=== PATIENT | male | born 1960 | race Caucasian/White ===

== ENCOUNTER 2017-08-23 13:10 | Inpatient (IN) | payer OTHER ==
[~2017-08-23] VITALS: Ht 180.3 cm; Wt 97.1 kg
[2017-08-23 13:21] VITALS: Ht 180.3 cm; Wt 97.1 kg
[2017-08-23 14:34] LABS: BASOPHIL % 0.4 % (0-2); RED CELL DISTRIBUTION WIDTH 14.4 % (11.5-14.5)
[2017-08-23 14:40] LABS: CALCIUM 8.7 mg/dL (8.5-10.1); CARBON DIOXIDE 20.4 mmol/L (21-32); CHLORIDE SERUM 104 mmol/L (98-107); CREATININE SERUM 1.2 mg/dL (0.7-1.3); GFR1 > 60 mL/min; GLUCOSE SERUM 90 mg/dL (74-106); POTASSIUM SERUM 4.9 mmol/L (3.5-5.1); SODIUM SERUM 134 mmol/L (136-145)
[2017-08-23 14:44] LABS: ALKALINE PHOSPHATASE 105 U/L (46-116); ALT/SGPT 83 U/L (16-63); AST/SGOT 139 U/L (15-37); BILIRUBIN TOTAL 4.01 mg/dL (0.20-1.00); TOTAL PROTEIN, SERUM 7.3 g/dL (6.4-8.2)
[2017-08-23 14:45] LABS: ALBUMIN 1.9 g/dL (3.4-5.0)
[2017-08-23 14:56] LABS: T3 TOTAL 0.82 ng/mL
[2017-08-23 15:04] LABS: CHOLESTEROL 66 mg/dL (<200)
[2017-08-23 15:18] LABS: FREE T4 1.56 ng/dL (0.76-1.46); FREE THYROXINE INDEX 2.9 ug/dL (1.4-4.5); T4(THYROXINE) 8.2 ug/dL (4.7-13.3)
[2017-08-23 15:26] LABS: PLATELET COUNT 43 x10^3mcL (130-400)
[2017-08-23] MEDS ORDERED: CIPRO500 MG PO (15:37)
[2017-08-23] MEDS ORDERED: PROPRANOLOL HCL20 MG PO (15:38)
[2017-08-23] MEDS ORDERED: TUMS CH (15:38)
[2017-08-23] MEDS ORDERED: FUROSEMIDE40 MG PO (15:38)
[2017-08-23] MEDS ORDERED: ACETAMINOPHEN A1 TAB PO (15:39)
[2017-08-23] MEDS ORDERED: SPIRONOLACTONE100 MG PO (15:39)
[2017-08-23] MEDS ORDERED: LACTULOSE10 GM/152 PO (15:39)
[2017-08-23] MEDS ORDERED: GOOD SENSE OMEP20 MG PO (15:39)
[2017-08-23 16:29] VITALS: BP 144/82
[2017-08-23 21:27] VITALS: BP 134/80
[2017-08-23 21:58] LABS: microscopic required? NO
[2017-08-23 22:08] LABS: urine erythrocyte NEGATIVE (NEGATIVE)
[2017-08-23 22:48] LABS: AMPHETAMINE QUAL UR NONE DETECTED (See below)
[2017-08-24 05:38] VITALS: BP 123/79
[2017-08-24 06:23] LABS: BASOPHIL % 0.4 % (0-2)
[2017-08-24 06:35] LABS: CALCIUM 8.1 mg/dL (8.5-10.1); CARBON DIOXIDE 20.8 mmol/L (21-32); CHLORIDE SERUM 106 mmol/L (98-107); CREATININE SERUM 1.3 mg/dL (0.7-1.3); GFR1 > 60 mL/min; GLUCOSE SERUM 80 mg/dL (74-106); POTASSIUM SERUM 4.9 mmol/L (3.5-5.1); SODIUM SERUM 136 mmol/L (136-145)
[2017-08-24 08:30] LABS: PLATELET COUNT 35 x10^3mcL (130-400)
[2017-08-24 08:59] VITALS: BP 120/80
[2017-08-24 14:04] VITALS: BP 114/69
[2017-08-24 17:39] VITALS: BP 102/65
[2017-08-24 20:36] VITALS: BP 106/68
[2017-08-25 05:31] VITALS: BP 105/67
[2017-08-25 06:51] LABS: CARBON DIOXIDE 23.5 mmol/L (21-32); CHLORIDE SERUM 107 mmol/L (98-107); CREATININE SERUM 1.2 mg/dL (0.7-1.3); GFR1 > 60 mL/min; GLUCOSE SERUM 97 mg/dL (74-106); POTASSIUM SERUM 4.9 mmol/L (3.5-5.1); SODIUM SERUM 137 mmol/L (136-145)
[2017-08-25 07:01] LABS: PLATELET COUNT 35 x10^3mcL (130-400); RED CELL DISTRIBUTION WIDTH 14.9 % (11.5-14.5)
[2017-08-25 09:36] LABS: BAND NEUTROPHIL 1 % (0-10); BASOPHIL 0 % (0-2); MONOCYTE 12 % (0-7); SEGMENTED NEUTROPHILS 70 % (37-75)
[2017-08-25 09:45] VITALS: BP 110/65
[2017-08-25 11:04] VITALS: BP 110/65
== END 2017-08-25 15:18 | disposition other institution (70) | DRG 441 ==
LOC: ED 13:10 → DU 15:22
PROVIDERS: Internal Medicine; Specialist
DX: K72.90 Hepatic failure, unspecified without coma (principal); G93.41 Metabolic encephalopathy; L03.116 Cellulitis of left lower limb; C22.0 Liver cell carcinoma; R18.8 Other ascites; L03.115 Cellulitis of right lower limb; B18.2 Chronic viral hepatitis C; K74.60 Unspecified cirrhosis of liver; D69.6 Thrombocytopenia, unspecified; I70.203 Unspecified atherosclerosis of native arteries of extremities, bilateral legs; Z79.899 Other long term (current) drug therapy; Z88.6 Allergy status to analgesic agent; D63.8 Anemia in other chronic diseases classified elsewhere; E86.0 Dehydration
CPT/HCPCS: 36600; 83880; 84439; G0480; J1940; J2543; J3370; J3490; J7050; Q0092